=== PATIENT | male | born 1970 | race Caucasian/White ===

== ENCOUNTER 2016-03-31 22:13 | Emergency (ER) | payer MEDICAID, OTHER ==
[~2016-03-31] VITALS: Ht 210.8 cm; Wt 107.8 kg
[~2016-03-31 22:13] MED LIST: CINN500C PO; HYDR-3534 PO; METF500 PO
[2016-03-31 22:22] VITALS: BP 131/82; PULSE 92; RESP 20; TEMP 98.1
[2016-03-31] MEDS ORDERED: SODIUM CHLOR 0.9% 1000 ML INJ 1,000 ML IV ONE ×2 (23:00)
[2016-03-31] MEDS ORDERED: INSULIN HUMAN REGULAR 1,000 UNITS/10 ML VIAL SQ ONE (23:00)
--- NOTE | 2016-03-31 23:04 | PD ---
HPI Chief Complaint: Diabetic Time Seen by Provider: 22:55 Travel History International Travel<30 days: No Contact w/Intl Traveler<30days: No Traveled to known affect area: No History of Present Illness HPI This 46-year-old male is complaining of polyuria and polydipsia. He was diagnosed with diabetes about 3 months ago. He had been on Glucophage. He remembers Glucophage about a month ago and is not nothing sounds. She has made appointment with his doctor but has not seen them yet. He is not short of breath. She has been urinating a lot and is very thirsty. He has had some muscle spasms in his right arm today PFSH Past Medical History Arthritis: Yes (DJD) Asthma: No Blood Disorders: No Anxiety: Yes Depression: Yes Heart Rhythm Problems: No Cancer: No Cardiac Catheterization: No Cardiovascular Problems: Yes (HTN) High Cholesterol: Yes Chest Pain: Yes (STRESS TEST NEG) Congestive Heart Failure: No COPD: Yes Cerebrovascular Accident: No Diabetes: Yes Diminished Hearing: No Endocrine: Yes Gastrointestinal Disorders: No GERD: Yes Genitourinary: No Headaches: Yes Hepatitis: No Herniated Disk: Yes Hypertension: Yes Immune Disorder: Yes Implanted Vascular Access Dvce: No Kidney Stones: No Musculoskeletal: Yes Neurologic: Yes Psychiatric: Yes Reproductive: No Respiratory: Yes (PNEUMONIA) Immunizations Current: Yes Myocardial Infarction: No Pneumonia: Yes Sickle Cell Disease: No Sleep Apnea: No Thyroid Disease: Yes (HYPOTHYROID: NO MEDS) Ulcer: Yes (GASTRIC) PNEUMOCCOCAL Vaccine (Year): 2 Past Surgical History Abdominal Surgery: Yes (APPEndectomy) Appendectomy: Yes Arteriovenous Shunt: No Cholecystectomy: No Coronary Artery Bypass Graft: No Insulin Pump: No Joint Replacement: No Neurologic Surgery: Yes (L1 S1 DISKS REPAIR 2006) Other Surgery: Yes Social History Alcohol Use: Yes (DAILY) Tobacco Use: No (QUIT 2009) Substance Use: No Allergies-Medications (Allergen,Severity, Reaction): Coded Allergies: No Known Allergies (Verified , 02/12/16) Reported Meds & Prescriptions Reported Meds & Active Scripts Active Glucophage (Metformin HCl) 500 Mg Tab 500 Mg PO BIDPC With meals Lortab (Hydrocodone-Acetaminophen) 7.5-325 Mg Tab 1 Tab PO Q4H PRN Reported Cinnamon 500 Mg Cap 1,000 Mg PO BID Glucophage (Metformin HCl) 500 Mg Tab 500 Mg PO BIDPC With meals Review of Systems General / Constitutional: No: Fever, Chills Eyes: No: Diploplia, Blurred Vision HENT: No: Headaches Cardiovascular: No: Chest Pain or Discomfort, Palpitations Respiratory: No: Cough, Shortness of Breath Gastrointestinal: No: Vomiting Genitourinary: Positive: Frequency Musculoskeletal: No: Myalgias Skin: No Rash Physical Exam Narrative GENERAL: Well-developed male SKIN: Warm and dry. HEAD: Atraumatic. Normocephalic. EYES: Pupils equal and round. No scleral icterus. No injection or drainage. ENT: No nasal bleeding or discharge. Mucous membranes pink and moist. NECK: Trachea midline. No JVD. CARDIOVASCULAR: Regular rate and rhythm. No murmur appreciated. RESPIRATORY: No accessory muscle use. Clear to auscultation. Breath sounds equal bilaterally. GASTROINTESTINAL: Abdomen soft, non-tender, nondistended. Hepatic and splenic margins not palpable. MUSCULOSKELETAL: No obvious deformities. No clubbing. No cyanosis. No edema. NEUROLOGICAL: Awake and alert. No obvious cranial nerve deficits. Motor grossly within normal limits. Normal speech. PSYCHIATRIC: Appropriate mood and affect; insight and judgment normal. Data Data Last Documented VS Vital Signs Date Time Temp Pulse Resp B/P Pulse Ox O2 Delivery O2 Flow Rate FiO2 03/31/16 22:22 98.1 92 20 131/82 Orders Complete Blood Count With Diff (03/31/16 22:59) Basic Metabolic Panel (Bmp) (03/31/16 22:59) Beta Hydroxybutyrate (Acetone) (03/31/16 22:59) Sodium Chlor 0.9% 1000 Ml Inj (Ns 1000 M (03/31/16 23:00) Sodium Chlor 0.9% 1000 Ml Inj (Ns 1000 M (03/31/16 23:00) Insulin Human Regular Inj (Novolin R Inj (03/31/16 23:00) Labs Laboratory Tests Test 03/31/16 23:30 White Blood Count 8.6 TH/MM3 Red Blood Count 4.77 MIL/MM3 Hemoglobin 14.4 GM/DL Hematocrit 43.0 % Mean Corpuscular Volume 90.0 FL Mean Corpuscular Hemoglobin 30.1 PG Mean Corpuscular Hemoglobin 33.4 % Concent Red Cell Distribution Width 13.3 % Platelet Count 216 TH/MM3 Mean Platelet Volume 9.2 FL Neutrophils (%) (Auto) 55.4 % Lymphocytes (%) (Auto) 26.9 % Monocytes (%) (Auto) 10.2 % Eosinophils (%) (Auto) 6.2 % Basophils (%) (Auto) 1.3 % Neutrophils # (Auto) 4.8 TH/MM3 Lymphocytes # (Auto) 2.3 TH/MM3 Monocytes # (Auto) 0.9 TH/MM3 Eosinophils # (Auto) 0.5 TH/MM3 Basophils # (Auto) 0.1 TH/MM3 CBC Comment DIFF FINAL Differential Comment Sodium Level 137 MEQ/L Potassium Level 3.7 MEQ/L Chloride Level 100 MEQ/L Carbon Dioxide Level 24.6 MEQ/L Anion Gap 12 MEQ/L Blood Urea Nitrogen 13 MG/DL Creatinine 0.95 MG/DL Estimat Glomerular Filtration 85 ML/MIN Rate Random Glucose 354 MG/DL Calcium Level 8.5 MG/DL MDM Medical Decision Making Medical Screen Exam Complete: Yes Emergency Medical Condition: Yes Medical Record Reviewed: Yes Differential Diagnosis Differential includes uncontrolled diabetes, hyperglycemia, noncompliance Narrative Course Blood sugar is 350. He's been given IV fluids and some insulin. He'll be started on Glucophage 500 twice a day Diagnosis Primary Impression: Hyperglycemia Scripts Metformin (Glucophage)500 Mg [id number] Mg PO BIDPC #60 TAB Ref 0 With meals Prov:Huang Tse MD 03/31/16 Disposition: 01 DISCHARGE HOME Condition: Stable Huang Tse MD Mar 31, 2016 23:04
[2016-03-31] MEDS ORDERED: METF500 PO (23:43)
[2016-03-31 23:46] LABS: AUTOMATED NEUTROPHIL # 4.8 TH/MM3 (1.8-7.7); BASOPHIL # 0.1 TH/MM3 (0-0.2); BASOPHIL % 1.3 % (0.0-2.0); EOSINOPHIL # 0.5 TH/MM3 (0-0.4); EOSINOPHIL % 6.2 % (0.0-4.0); HEMO FLAGS DIFF FINAL; LYMPH % 26.9 % (9.0-44.0); LYMPHOCYTE # 2.3 TH/MM3 (1.0-4.8); MEAN CORPUSCULAR HEMOGLOBIN 30.1 PG (27.0-34.0); MEAN CORPUSCULAR HGB CONC 33.4 % (32.0-36.0); MONO % 10.2 % (0.0-8.0); NEUT % 55.4 % (16.0-70.0); PLATELET COUNT 216 TH/MM3 (150-450); RED BLOOD COUNT 4.77 MIL/MM3 (4.50-5.90); RED CELL DISTRIBUTION WIDTH 13.3 % (11.6-17.2); WHITE BLOOD COUNT 8.6 TH/MM3 (4.0-11.0)
[2016-03-31 23:55] LABS: POTASSIUM 3.7 MEQ/L (3.5-5.1)
[2016-03-31 23:57] LABS: BICARBONATE 24.6 MEQ/L (21.0-32.0)
[2016-04-01 00:12] LABS: BETA-HYDROXYBUTYRATE 0.3 MMOL/L (0.00-0.39)
[2016-04-01 01:40] VITALS: BP 119/52; TEMP 98.5
== END 2016-04-01 01:55 | disposition home or self-care (01) ==
LOC: PHED 22:13
DX: E11.65 Type 2 diabetes mellitus with hyperglycemia (principal); Z79.84 Long term (current) use of oral hypoglycemic drugs
CPT/HCPCS: 80048; 82010; 85025; 96360; 96361; 96372; 99284; J1815; J7030

== ENCOUNTER 2016-06-15 02:54 | Emergency (ER) | payer MEDICAID, OTHER ==
[~2016-06-15] VITALS: Ht 185.4 cm; Wt 131.0 kg
[2016-06-15 03:00] VITALS: BP 131/83; PULSE 115; RESP 20; TEMP 98.5; O2SAT 97
[2016-06-15 03:20] VITALS: BP 110/64; PULSE 104; RESP 26; O2SAT 97
[2016-06-15 03:35] VITALS: RESP 26; O2SAT 96
[2016-06-15] MEDS: RESP: ALBUTEROL 2.5 MG/IPRATROPIUM 0.5 MG NEB (SCH) INH ×3 (03:39→03:58)
--- NOTE | 2016-06-15 03:44 | PD ---
HPI Chief Complaint: Respiratory Symptoms Time Seen by Provider: 03:34 Travel History International Travel<30 days: No Contact w/Intl Traveler<30days: No Traveled to known affect area: No History of Present Illness HPI 46-year-old male presents since with complaint of shortness of breath 2 days. Symptoms have worsened this evening. Patient does not have medication for his diagnosis of COPD. Patient has not seen his primary care provider in 2 years. Patient also has diabetes but has not been well-controlled. Patient had fever of 10 2F on . Patient took acetaminophen. Patient started noticing cough productive of yellow sputum this evening with increasing shortness of breath and wheezing. Patient denies chest pain except that associated with his cough. Prior history of hypertension, diabetes, dyslipidemia, and denies tobacco use. [facility] Past Medical History Narrative Medical Hypertension dyslipidemia diabetes hypothyroidism; laminectomy appendectomy; no tobacco use no alcohol use; nursing notes reviewed Arthritis: Yes (DJD) Asthma: No Blood Disorders: No Anxiety: Yes Depression: Yes Heart Rhythm Problems: No Cancer: No Cardiac Catheterization: No Cardiovascular Problems: Yes (HTN) High Cholesterol: Yes Chest Pain: Yes (STRESS TEST NEG) Congestive Heart Failure: No COPD: Yes Cerebrovascular Accident: No Diabetes: Yes Patient Takes Glucophage: No Diminished Hearing: No Endocrine: Yes Gastrointestinal Disorders: No GERD: Yes Genitourinary: No Headaches: Yes Hepatitis: No Herniated Disk: Yes Hypertension: Yes Immune Disorder: Yes Implanted Vascular Access Dvce: No Kidney Stones: No Musculoskeletal: Yes Neurologic: Yes Psychiatric: Yes Reproductive: No Respiratory: Yes (COPD) Immunizations Current: No Myocardial Infarction: No Pneumonia: Yes Sickle Cell Disease: No Sleep Apnea: No Thyroid Disease: Yes (HYPOTHYROID: NO MEDS) Ulcer: Yes (GASTRIC) PNEUMOCCOCAL Vaccine (Year): 2 Past Surgical History Abdominal Surgery: Yes (APPEndectomy) Appendectomy: Yes Arteriovenous Shunt: No Cholecystectomy: No Coronary Artery Bypass Graft: No Insulin Pump: No Joint Replacement: No Neurologic Surgery: Yes (LAMINECTOMY ) Other Surgery: Yes Social History Alcohol Use: No Tobacco Use: No (QUIT 2009) Substance Use: No Allergies-Medications (Allergen,Severity, Reaction): Coded Allergies: No Known Allergies (Verified , 06/15/16) Reported Meds & Prescriptions Reported Meds & Active Scripts Active No Active Prescriptions or Reported Medications Review of Systems Except as stated in HPI: all other systems reviewed are Neg General / Constitutional: Positive: Fever, No: Chills HENT: No: Congestion Cardiovascular: No: Chest Pain or Discomfort Respiratory: Positive: Cough, Shortness of Breath, Wheezing Gastrointestinal: No: Vomiting, Abdominal Pain Genitourinary: No: Dysuria, Flank Pain Musculoskeletal: No: Myalgias, Arthralgias, Edema Skin: No Rash Neurologic: No: Weakness, Dizziness, Syncope Psychiatric: Positive: Anxiety Endocrine: No: Polyuria Hematologic/Lymphatic: No: Easy Bruising Physical Exam Narrative GENERAL: Well-developed well-nourished male in obvious respiratory discomfort and mild distress; no accessory muscle use. SKIN: Warm and dry. HEAD: Normocephalic. EYES: No scleral icterus. No injection or drainage. NECK: Supple, trachea midline. No JVD or lymphadenopathy. CARDIOVASCULAR: Regular rate and rhythm without murmurs, gallops, or rubs. RESPIRATORY: Breath sounds equal bilaterally diminished breath sounds with diffuse expiratory wheezes. No accessory muscle use. GASTROINTESTINAL: Abdomen soft, non-tender, nondistended. MUSCULOSKELETAL: No cyanosis, or edema. Radial and dorsalis pedis pulses 2+ to palpation bilaterally. BACK: Nontender without obvious deformity. No CVA tenderness. Data Data Last Documented VS Vital Signs Date Time Temp Pulse Resp B/P Pulse Ox O2 Delivery O2 Flow Rate FiO2 06/15/16 05:42 96 18 154/80 98 Room Air 06/15/16 03:00 98.5 Orders Iv Access Insert/Monitor (06/15/16 03:34) Ecg Monitoring (06/15/16 03:34) Oximetry (06/15/16 03:34) Oxygen Administration (06/15/16 03:34) Sodium Chloride 0.9% Flush (Ns Flush) (06/15/16 03:45) Methylprednisolone So Succ Inj (Solumedr (06/15/16 03:45) Albuterol-Ipratropium Neb (Duoneb Neb) (06/15/16 03:45) Complete Blood Count With Diff (06/15/16 03:34) Basic Metabolic Panel (Bmp) (06/15/16 03:34) Chest, Single Ap (06/15/16 03:34) Sodium Chloride 0.9% Flush (Ns Flush) (06/15/16 03:45) B-Type Natriuretic Peptide (06/15/16 03:34) Electrocardiogram (06/15/16 ) Troponin I (06/15/16 03:34) Blood Culture (06/15/16 03:34) Lactic Acid (06/15/16 03:34) Sodium Chlorid 0.9% 500 Ml Inj (Ns 500 M (06/15/16 03:45) Ceftriaxone Inj (Rocephin Inj) (06/15/16 03:45) Azithromycin Inj (Zithromax Inj) (06/15/16 03:45) Sodium Chlor 0.9% 1000 Ml Inj (Ns 1000 M (06/15/16 05:00) Insulin Human Regular Inj (Novolin R Inj (06/15/16 05:00) Labs Laboratory Tests Test 06/15/16 06/15/16 03:20 04:00 Sodium Level 136 MEQ/L Potassium Level 4.2 MEQ/L Chloride Level 102 MEQ/L Carbon Dioxide Level 20.6 MEQ/L Anion Gap 13 MEQ/L Blood Urea Nitrogen 12 MG/DL Creatinine 1.10 MG/DL Estimat Glomerular Filtration 71 ML/MIN Rate Random Glucose 350 MG/DL Calcium Level 8.2 MG/DL Troponin I LESS THAN 0.02 NG/ML B-Type Natriuretic Peptide 0 PG/ML White Blood Count 6.5 TH/MM3 Red Blood Count 4.88 MIL/MM3 Hemoglobin 14.4 GM/DL Hematocrit 42.7 % Mean Corpuscular Volume 87.5 FL Mean Corpuscular Hemoglobin 29.5 PG Mean Corpuscular Hemoglobin 33.7 % Concent Red Cell Distribution Width 12.2 % Platelet Count 181 TH/MM3 Mean Platelet Volume 8.8 FL Neutrophils (%) (Auto) 54.5 % Lymphocytes (%) (Auto) 21.8 % Monocytes (%) (Auto) 12.8 % Eosinophils (%) (Auto) 9.8 % Basophils (%) (Auto) 1.1 % Neutrophils # (Auto) 3.6 TH/MM3 Lymphocytes # (Auto) 1.4 TH/MM3 Monocytes # (Auto) 0.8 TH/MM3 Eosinophils # (Auto) 0.6 TH/MM3 Basophils # (Auto) 0.1 TH/MM3 CBC Comment DIFF FINAL Differential Comment Lactic Acid Level 1.5 mmol/L MDM Medical Decision Making Medical Screen Exam Complete: Yes Emergency Medical Condition: Yes Medical Record Reviewed: Yes (negative treadmill stress test 06/16) Interpretation(s) EKG: Sinus tachycardia rate [address] elevation or injury pattern change noted Differential Diagnosis Dyspnea, exacerbation COPD, bronchitis, pneumonia, CHF, ACS, uncontrolled diabetes, dehydration, viral syndrome Narrative Course 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 iv ACCESS OBTAINED SPECIMENS COLLECTED AND SENT FOR RESULTING PATIENT DOUGH MAKER 3 dUOnEB UPDRAFTS AND sOLU-mEDROL 125 MG iv Patient with marked improvement after DuoNeb updrafts IV fluids administered and regular insulin given to the patient for blood sugar of 350 At 6:30 AM patient reports that he feels clinically improved is desirous of being discharged to home has received IV fluid bolus and regular insulin subcutaneous IV Rocephin and azithromycin; room air O2 saturation's 98% respirations nonlabored and no accessory muscle use 1 sounds are clear to get a few rare end expiratory rhonchi chest x-ray reveals no lobar infiltrate. Patient reports out of his albuterol inhaler and metformin prescription; these medications are refilled. Patient is stable for outpatient management and follow-up with primary care provider Sepsis Criteria SIRS Criteria (2 or more): Heart rate over 90, RR > 20 or PaCO2 < 32 Diagnosis Primary Impression: COPD exacerbation Additional Impressions: Bronchitis DM (diabetes mellitus) Medication refill Referrals: Primary Care Physician call for appointment Patient Instructions: General Instructions Departure Forms: Tests/Procedures, Work Release Special Instructions: no work x 3 days Additional Instructions: Increase fluid hydration Complete course of antibiotic as prescribed Use inhaler as prescribed as needed for wheezing and shortness of breath Follow-up with primary care provider May use [id number] Robitussin or Mucinex for thinning mucous secretions Monitor temperature every 4 hours with thermometer take acetaminophen/Tylenol every 4 hours as needed for fever 100.4F or greater May use ibuprofen/Advil/Motrin every 6-8 hours as needed for breakthrough fever not responsive to acetaminophen Return to the emergency department for any concerns or change in condition No work 3 days Med/Other Pt SpecificInfo: Prescription(s) given Scripts Azithromycin (Zithromax Z-Zay)250 Mg [id number] Mg PO DIRECTED #1 DSPK Ref 0 500 MG (2 tabs) day 1, then 1 tab days 2-5. Prov:Kenzie Cates MD 06/15/16 Metformin 500 Mg [id number] Mg PO BIDPC #60 TAB Ref 0 With meals Prov:Kenzie Cates MD 06/15/16 Methylprednisolone Dosepak (Medrol Dosepak)4 Mg Dspk4 Mg PO DIRECTED #1 DSPK Ref 0 Per Pharmacist direction Prov:Kenzie Cates MD 06/15/16 Albuterol 8.5 GM Inh (Proair Hfa 8.5 GM Inh)90 Mcg/Act Aer2 Puff INH Q4-6H PRN ( SHORTNESS OF BREATH) #1 INHALER Ref 0 108 mcg/actuation Prov:Kenzie Cates MD 06/15/16 Disposition: 01 DISCHARGE HOME Condition: Stable Kenzie Cates MD Jun 15, 2016 03:44
[2016-06-15] MEDS ORDERED: SODIUM CHLORIDE 0.9% FLUSH 10 ML FLUSH IVF PRN ×2 (03:45)
[2016-06-15] MEDS ORDERED: cefTRIAXone INJ 1,000 MG in SODIUM CHLORIDE 0.9% INJ 100 ML IV ONE (03:45)
[2016-06-15] MEDS ORDERED: SODIUM CHLORID 0.9% 500 ML INJ 500 ML IV ONE (03:45)
[2016-06-15] MEDS ORDERED: AZITHROMYCIN INJ 500 MG in SODIUM CHLOR 0.9% 250 ML INJ 250 ML IV ONE (03:45)
[2016-06-15] MEDS ORDERED: methylPREDNISolone SOD SUCC 125 MG/2 ML VIAL IVP ONE (03:45)
[2016-06-15 04:10] LABS: AUTOMATED NEUTROPHIL # 3.6 TH/MM3 (1.8-7.7); BASOPHIL # 0.1 TH/MM3 (0-0.2); BASOPHIL % 1.1 % (0.0-2.0); EOSINOPHIL # 0.6 TH/MM3 (0-0.4); EOSINOPHIL % 9.8 % (0.0-4.0); HEMATOCRIT 42.7 % (39.0-51.0); HEMO FLAGS DIFF FINAL; LYMPH % 21.8 % (9.0-44.0); LYMPHOCYTE # 1.4 TH/MM3 (1.0-4.8); MEAN CELL VOLUME 87.5 FL (80.0-100.0); MEAN CORPUSCULAR HEMOGLOBIN 29.5 PG (27.0-34.0); MEAN CORPUSCULAR HGB CONC 33.7 % (32.0-36.0); MONO % 12.8 % (0.0-8.0); NEUT % 54.5 % (16.0-70.0); PLATELET COUNT 181 TH/MM3 (150-450); RED BLOOD COUNT 4.88 MIL/MM3 (4.50-5.90); RED CELL DISTRIBUTION WIDTH 12.2 % (11.6-17.2); WHITE BLOOD COUNT 6.5 TH/MM3 (4.0-11.0)
[2016-06-15 04:20] LABS: CHLORIDE 102 MEQ/L (98-107); POTASSIUM 4.2 MEQ/L (3.5-5.1); SODIUM (NA) 136 MEQ/L (136-145)
[2016-06-15 04:23] LABS: ANION GAP 13 MEQ/L (5-15); BICARBONATE 20.6 MEQ/L (21.0-32.0); BLOOD UREA NITROGEN 12 MG/DL (7-18)
[2016-06-15 04:26] LABS: GLOMERULAR FILTRATION RATE 71 ML/MIN (>89)
--- NOTE | 2016-06-15 04:28 | RADHPO ---
EXAM DATE/TIME: 06/15/2016 04:10 [place] COMPARISON: CHEST SINGLE AP, November 24, 2015, 8:22. INDICATIONS : Shortness of breath. MEDICAL HISTORY : None. SURGICAL HISTORY : None. ENCOUNTER: Initial ACUITY: 1 day PAIN SCORE: 2/10 LOCATION: Bilateral chest FINDINGS: The cardiac silhouette is enlarged in transverse diameter. The lungs are free of acute parenchymal op acity. No effusions are identified. Osseous structures are intact. CONCLUSION: Cardiomegaly. No acute cardiopulmonary disease. Jose R Hidalgo MD on June 15, 2016 at 4:26 Board Certified Radiologist. This report was verified electronically.
[2016-06-15 05:00] VITALS: BP 158/86; PULSE 105; RESP 18; O2SAT 97
[2016-06-15] MEDS ORDERED: INSULIN HUMAN REGULAR 1,000 UNITS/10 ML VIAL SQ ONE (05:00)
[2016-06-15] MEDS ORDERED: SODIUM CHLOR 0.9% 1000 ML INJ 1,000 ML IV ONE (05:00)
[2016-06-15 05:42] VITALS: BP 154/80; PULSE 96; RESP 18; O2SAT 98
[2016-06-15 06:34] VITALS: BP 137/70; PULSE 98; RESP 18; TEMP 99.5; O2SAT 97
[2016-06-15] MEDS ORDERED: MEDR4PAK PO (06:34)
[2016-06-15] MEDS ORDERED: ZITHTAB PO (06:34)
[2016-06-15] MEDS ORDERED: ALBUAER3 INH (06:34)
[2016-06-15] MEDS ORDERED: METF500T PO (06:34)
--- NOTE | 2016-06-15 14:36 | EKG ---
Date Performed: 06/15/2016 Time Performed: 03:48:48 PTAGE: 46 years EKG: Sinus tachycardia Compared to PREVIOUS TRACING , heart rate is faster. Normal ECG except for rate PREVIOUS TRACIN 06.17 DOCTOR: Donnie Mccann Interpretating Date/Time 06/15/2016 14:34:36
== END 2016-06-15 06:55 | disposition home or self-care (01) ==
LOC: PHED 02:54
DX: J44.1 Chronic obstructive pulmonary disease with (acute) exacerbation (principal); J40 Bronchitis, not specified as acute or chronic; E11.9 Type 2 diabetes mellitus without complications; R00.0 Tachycardia, unspecified; I10 Essential (primary) hypertension; E78.5 Hyperlipidemia, unspecified; E03.9 Hypothyroidism, unspecified; Z76.0 Encounter for issue of repeat prescription; Z87.39 Personal history of other diseases of the musculoskeletal system and connective tissue; Z86.59 Personal history of other mental and behavioral disorders; Z87.09 Personal history of other diseases of the respiratory system; Z87.19 Personal history of other diseases of the digestive system; Z86.69 Personal history of other diseases of the nervous system and sense organs
CPT/HCPCS: 71010; 80048; 83605; 83880; 84484; 85025; 87040; 93005; 94640; 94664; 96365; 96367; 96372; 96375; 99285; J0456; J0696; J1815; J2930; J7030; J7040; J7050

== ENCOUNTER 2016-06-15 22:46 | Emergency (ER) | payer MEDICAID, OTHER ==
[~2016-06-15] VITALS: Ht 185.4 cm; Wt 106.0 kg
[~2016-06-15 22:46] MED LIST changes: +ALBUAER3 INH; +MEDR4PAK PO; +METF500T PO; +ZITHTAB PO
[2016-06-15 22:56] VITALS: BP 157/102; PULSE 91; RESP 18; TEMP 98.2; O2SAT 97
[2016-06-15 23:29] VITALS: BP 158/91; PULSE 87; RESP 18; O2SAT 97
[2016-06-16] MEDS ORDERED: SODIUM CHLORIDE 0.9% FLUSH 10 ML FLUSH IVF PRN
[2016-06-16 00:05] VITALS: O2SAT 95
[2016-06-16 00:18] LABS: AUTOMATED NEUTROPHIL # 10.8 TH/MM3 (1.8-7.7); BASOPHIL # 0.4 TH/MM3 (0-0.2); BASOPHIL % 2.6 % (0.0-2.0); EOSINOPHIL % 0.3 % (0.0-4.0); LYMPH % 10.8 % (9.0-44.0); LYMPHOCYTE # 1.5 TH/MM3 (1.0-4.8); MEAN CELL VOLUME 87.9 FL (80.0-100.0); MEAN CORPUSCULAR HEMOGLOBIN 29.4 PG (27.0-34.0); MEAN CORPUSCULAR HGB CONC 33.4 % (32.0-36.0); MONO % 8.2 % (0.0-8.0); NEUT % 78.1 % (16.0-70.0); PLATELET COUNT 197 TH/MM3 (150-450); RED BLOOD COUNT 4.89 MIL/MM3 (4.50-5.90); RED CELL DISTRIBUTION WIDTH 12.7 % (11.6-17.2); WHITE BLOOD COUNT 13.8 TH/MM3 (4.0-11.0)
[2016-06-16 00:21] LABS: HEMO FLAGS DIFF FINAL
--- NOTE | 2016-06-16 00:23 | PD ---
HPI Chief Complaint: Diabetic Time Seen by Provider: 23:52 Travel History International Travel<30 days: No Contact w/Intl Traveler<30days: No Traveled to known affect area: No History of Present Illness HPI 46-year-old male presents to the emergency department for elevated blood sugar. Patient was seen in the emergency department yesterday for exacerbation of COPD with wheezing shortness of breath and prescribed azithromycin Medrol Dosepak and albuterol inhaler after receiving IV Solu-Medrol IV fluids and DuoNeb updrafts in the emergency department. Patient also received refill of his metformin prescription. Patient states that he did take one time dose of metformin has not yet started the oral Medrol Dosepak and has been taking his antibiotic and inhaler as needed. Patient denies other concerns or complaints. Patient states no respiratory distress and no further wheezing today. Patient identified on 2 different blood sugars that his blood sugar was greater than 300 or greater than 400 so return to the emergency department for management of his diabetes. Patient is also noted urinary frequency. PFSH Past Medical History Narrative Medical Arthritis anxiety depression hypertension dyslipidemia diabetes COPD medication noncompliance hypothyroidism appendectomy laminectomy;No tobacco use; nursing notes reviewed Arthritis: Yes (DJD) Asthma: No Blood Disorders: No Anxiety: Yes Depression: Yes Heart Rhythm Problems: No Cancer: No Cardiac Catheterization: No Cardiovascular Problems: Yes (HTN) High Cholesterol: Yes Chest Pain: Yes (STRESS TEST NEG) Congestive Heart Failure: No COPD: Yes Cerebrovascular Accident: No Diabetes: Yes Patient Takes Glucophage: Yes Diminished Hearing: No Endocrine: Yes Gastrointestinal Disorders: No GERD: Yes Genitourinary: No Headaches: Yes Hepatitis: No Herniated Disk: Yes Hypertension: Yes Immune Disorder: Yes Implanted Vascular Access Dvce: No Kidney Stones: No Musculoskeletal: Yes Neurologic: Yes Psychiatric: Yes Reproductive: No Respiratory: Yes (COPD) Immunizations Current: No Myocardial Infarction: No Pneumonia: Yes Sickle Cell Disease: No Sleep Apnea: No Thyroid Disease: Yes (HYPOTHYROID: NO MEDS) Ulcer: Yes (GASTRIC) PNEUMOCCOCAL Vaccine (Year): 2 Past Surgical History Abdominal Surgery: Yes (APPEndectomy) Appendectomy: Yes Arteriovenous Shunt: No Cholecystectomy: No Coronary Artery Bypass Graft: No Insulin Pump: No Joint Replacement: No Neurologic Surgery: Yes (LAMINECTOMY ) Other Surgery: Yes Social History Alcohol Use: No Tobacco Use: No (QUIT 2009) Substance Use: No Allergies-Medications (Allergen,Severity, Reaction): Coded Allergies: No Known Allergies (Verified , 06/15/16) Reported Meds & Prescriptions Reported Meds & Active Scripts Active Zithromax Z-Zay (Azithromycin) 250 Mg Dspk 250 Mg PO DIRECTED 500 MG (2 tabs) day 1, then 1 tab days 2-5. Metformin (Metformin HCl) 500 Mg Tab 500 Mg PO BIDPC With meals Medrol Dosepak (Methylprednisolone) 4 Mg Dspk 4 Mg PO DIRECTED Per Pharmacist direction Proair Hfa 8.5 GM Inh (Albuterol Sulfate) 90 Mcg/Act Aer 2 Puff INH Q4-6H PRN 108 mcg/actuation Review of Systems Except as stated in HPI: all other systems reviewed are Neg General / Constitutional: No: Fever, Chills HENT: No: Congestion Cardiovascular: No: Chest Pain or Discomfort Respiratory: No: Shortness of Breath Gastrointestinal: No: Nausea, Vomiting, Diarrhea, Abdominal Pain Genitourinary: No: Frequency, Dysuria Musculoskeletal: No: Myalgias Skin: No Rash Neurologic: No: Weakness, Dizziness, Syncope Psychiatric: No: Anxiety Endocrine: Positive: Polyuria, No: Polydipsia Hematologic/Lymphatic: No: Easy Bruising Physical Exam Narrative GENERAL: Well-developed well-nourished male in acute distress no respiratory distress. SKIN: Warm and dry. HEAD: Normocephalic. EYES: No scleral icterus. No injection or drainage. NECK: Supple, trachea midline. No JVD or lymphadenopathy. CARDIOVASCULAR: Regular rate and rhythm without murmurs, gallops, or rubs. RESPIRATORY: Breath sounds equal bilaterally. No accessory muscle use. GASTROINTESTINAL: Abdomen soft, non-tender, nondistended. MUSCULOSKELETAL: No cyanosis, or edema. BACK: Nontender without obvious deformity. No CVA tenderness. Data Data Last Documented VS Vital Signs Date Time Temp Pulse Resp B/P Pulse Ox O2 Delivery O2 Flow Rate FiO2 06/16/16 00:05 95 06/15/16 23:33 87 18 Room Air 06/15/16 23:29 158/91 06/15/16 22:56 98.2 Orders Complete Blood Count With Diff (06/15/16 23:52) Comprehensive Metabolic Panel (06/15/16 23:52) Beta Hydroxybutyrate (Acetone) (06/15/16 23:52) Urinalysis - C+S If Indicated (06/15/16 23:52) Ecg Monitoring (06/15/16 23:52) Iv Access Insert/Monitor (06/15/16 23:52) Oximetry (06/15/16 23:52) NPO (06/15/16 23:52) Sodium Chloride 0.9% Flush (Ns Flush) (06/16/16 00:00) Sodium Chlor 0.9% 1000 Ml Inj (Ns 1000 M (06/16/16 00:30) Insulin Human Regular Inj (Novolin R Inj (06/16/16 00:30) Ketorolac Inj (Toradol Inj) (06/16/16 00:30) Labs Laboratory Tests Test 06/16/16 06/16/16 00:05 00:20 White Blood Count 13.8 TH/MM3 Red Blood Count 4.89 MIL/MM3 Hemoglobin 14.4 GM/DL Hematocrit 43.0 % Mean Corpuscular Volume 87.9 FL Mean Corpuscular Hemoglobin 29.4 PG Mean Corpuscular Hemoglobin 33.4 % Concent Red Cell Distribution Width 12.7 % Platelet Count 197 TH/MM3 Mean Platelet Volume 8.9 FL Neutrophils (%) (Auto) 78.1 % Lymphocytes (%) (Auto) 10.8 % Monocytes (%) (Auto) 8.2 % Eosinophils (%) (Auto) 0.3 % Basophils (%) (Auto) 2.6 % Neutrophils # (Auto) 10.8 TH/MM3 Lymphocytes # (Auto) 1.5 TH/MM3 Monocytes # (Auto) 1.1 TH/MM3 Eosinophils # (Auto) 0.0 TH/MM3 Basophils # (Auto) 0.4 TH/MM3 CBC Comment DIFF FINAL Differential Comment Sodium Level 134 MEQ/L Potassium Level 4.3 MEQ/L Chloride Level 97 MEQ/L Carbon Dioxide Level 21.3 MEQ/L Anion Gap 16 MEQ/L Blood Urea Nitrogen 17 MG/DL Creatinine 1.10 MG/DL Estimat Glomerular Filtration 71 ML/MIN Rate Random Glucose 458 MG/DL Calcium Level 9.6 MG/DL Total Bilirubin 0.2 MG/DL Aspartate Amino Transf 40 U/L (AST/SGOT) Alanine Aminotransferase 93 U/L (ALT/SGPT) Alkaline Phosphatase 58 U/L Total Protein 8.3 GM/DL Albumin 3.7 GM/DL B-Hydroxybutyrate 0.36 MMOL/L Urine Collection Type VOIDED Urine Color STRAW Urine Turbidity CLEAR Urine pH 6.0 Urine Specific [place] 1.035 Urine Protein NEG mg/dL Urine Glucose (UA) 1000 OR GREATER mg/dL Urine Ketones NEG mg/dL Urine Occult Blood NEG Urine Nitrite NEG Urine Bilirubin NEG Urine Leukocyte Esterase NEG Urine WBC 0-2 /hpf Urine Squamous Epithelial 0-2 /hpf Cells Urine Oval Fat Bodies Microscopic Urinalysis Comment CULT NOT INDICATED MDM Medical Decision Making Medical Screen Exam Complete: Yes Emergency Medical Condition: Yes Medical Record Reviewed: Yes Interpretation(s) CBC & BMP Diagram 06/16/16 00:05 BHB: not elevated @ 0.36 UA: glucose no ketones o/w wnl Differential Diagnosis Uncontrolled diabetes, steroid-induced hyperglycemia, electrolyte disturbance, dehydration, DKA, HHS Narrative Course IV access obtained specimens collected and sent for resulting IV fluids administer along with regular insulin Patient with good response to IV fluids and insulin administration Patient stable for outpatient management; patient encouraged to take metformin as prescribed; patient encouraged to hold off on Medrol Dosepak prescribed from the day before as currently no respiratory distress and has access to his inhaler as needed and is informed that steroid therapy will keep his blood sugars elevated. Patient did receive Solu-Medrol during his visit for exacerbation of COPD. Patient is having no respiratory concerns or complaints this time and lung sounds remained clear to auscultation. Patient is able to follow-up as an outpatient as needed through case management and with primary provider. Patient is encouraged to return to the emergency department for fever chills nausea vomiting uncontrolled blood sugars or any concerns. Diagnosis Primary Impression: Hyperglycemia Additional Impression: DM (diabetes mellitus) Referrals: [facility] call for appointment Primary Care Physician call for appointment Patient Instructions: General Instructions Med/Other Pt SpecificInfo: Med Stopped (defer starting medrol dose-zay taper ) Disposition: 01 DISCHARGE HOME Condition: Stable Kenzie Cates MD Jun 16, 2016 00:23
[2016-06-16 00:27] LABS: CHLORIDE 97 MEQ/L (98-107); POTASSIUM 4.3 MEQ/L (3.5-5.1); SODIUM (NA) 134 MEQ/L (136-145)
[2016-06-16] MEDS ORDERED: SODIUM CHLOR 0.9% 1000 ML INJ 1,000 ML IV ONE (00:30)
[2016-06-16] MEDS ORDERED: KETOROLAC TROMETHAMINE 30 MG/ML (IVP) VIAL IV PUSH ONE (00:30)
[2016-06-16] MEDS ORDERED: INSULIN HUMAN REGULAR 1,000 UNITS/10 ML VIAL IV PUSH ONE (00:30)
[2016-06-16 00:31] LABS: BLOOD, URINE NEG (NEG); KETONE, URINE NEG (NEG); NITRITE,URINE NEG (NEG)
[2016-06-16 00:35] LABS: ALT (GPT) 93 U/L (12-78); ANION GAP 16 MEQ/L (5-15); AST (GOT) 40 U/L (15-37); BICARBONATE 21.3 MEQ/L (21.0-32.0); BLOOD UREA NITROGEN 17 MG/DL (7-18); GLOMERULAR FILTRATION RATE 71 ML/MIN (>89)
[2016-06-16 00:37] LABS: GLUCOSE,URINE 1000 OR GREATER mg/dL (NEG)
[2016-06-16 01:05] LABS: METHOD OF COLLECTION VOIDED; URINE COLOR STRAW (YELLW/STRAW)
[2016-06-16 01:06] LABS: SQUAMOUS EPITHELIAL CELL URINE 0-2 /hpf (0-5); WBC, URINE 0-2 /hpf (0-5)
[2016-06-16 01:07] LABS: COMMENT (UR) CULT NOT INDICATED; CULTURE IF INDICATED CULT NOT INDICATED
[2016-06-16 01:25] LABS: ALKALINE PHOSPHATASE 58 U/L (45-117); BETA-HYDROXYBUTYRATE 0.36 MMOL/L (0.00-0.39); TOTAL BILIRUBIN ADULT 0.2 MG/DL (0.2-1.0)
[2016-06-16 01:55] VITALS: RESP 18
[2016-06-16 02:24] VITALS: BP 133/80
== END 2016-06-16 04:45 | disposition home or self-care (01) ==
LOC: PHED 22:46
DX: E11.65 Type 2 diabetes mellitus with hyperglycemia (principal); I10 Essential (primary) hypertension; E78.5 Hyperlipidemia, unspecified; E03.9 Hypothyroidism, unspecified; Z79.84 Long term (current) use of oral hypoglycemic drugs; Z87.39 Personal history of other diseases of the musculoskeletal system and connective tissue; Z86.59 Personal history of other mental and behavioral disorders; Z87.09 Personal history of other diseases of the respiratory system; Z86.79 Personal history of other diseases of the circulatory system; Z86.69 Personal history of other diseases of the nervous system and sense organs
CPT/HCPCS: 80053; 81001; 82010; 85025; 96361; 96374; 96375; 99284; J1815; J1885; J7030

== ENCOUNTER 2017-03-16 23:16 | Emergency (ER) | payer MEDICAID ==
[~2017-03-16] VITALS: Ht 185.4 cm; Wt 109.9 kg
[~2017-03-16 23:16] MED LIST changes: -CINN500C PO; -HYDR-3534 PO; -METF500 PO
[2017-03-16 23:23] VITALS: BP 158/84; PULSE 80; RESP 20; TEMP 98; O2SAT 100
[2017-03-17 01:55] VITALS: BP 157/84; PULSE 83; RESP 18; O2SAT 95
--- NOTE | 2017-03-17 02:23 | PD ---
HPI Chief Complaint: Musculoskeletal Complaint Time Seen by Provider: 02:18 Travel History International Travel<30 days: No Contact w/Intl Traveler<30days: No Traveled to known affect area: No History of Present Illness HPI The patient is a 47-year-old male that complains of right elbow pain for 2 days. 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 He denies any trauma. PFSH Past Medical History Arthritis: Yes (DJD) Asthma: No Blood Disorders: No Anxiety: Yes Depression: Yes Heart Rhythm Problems: No Cancer: No Cardiac Catheterization: No Cardiovascular Problems: Yes (HTN) High Cholesterol: Yes Chest Pain: Yes (STRESS TEST NEG) Congestive Heart Failure: No COPD: Yes Cerebrovascular Accident: No Diabetes: Yes Patient Takes Glucophage: No Diminished Hearing: No Endocrine: Yes Gastrointestinal Disorders: No GERD: Yes Genitourinary: No Headaches: Yes Hepatitis: No Herniated Disk: Yes Hypertension: Yes Immune Disorder: Yes Implanted Vascular Access Dvce: No Kidney Stones: No Medical other: Yes (DDD) Musculoskeletal: Yes Neurologic: Yes Psychiatric: Yes Reproductive: No Respiratory: Yes (COPD) Immunizations Current: No Myocardial Infarction: No Pneumonia: Yes Sickle Cell Disease: No Sleep Apnea: No Thyroid Disease: Yes (HYPOTHYROID: NO MEDS) Ulcer: Yes (GASTRIC) Tetanus Vaccination: Unknown PNEUMOCCOCAL Vaccine (Year): 2 Past Surgical History Abdominal Surgery: Yes (APPEndectomy) Appendectomy: Yes Arteriovenous Shunt: No Cholecystectomy: No Coronary Artery Bypass Graft: No Insulin Pump: No Joint Replacement: No Neurologic Surgery: Yes (LAMINECTOMY ) Other Surgery: Yes Social History Alcohol Use: No Tobacco Use: No Substance Use: No Allergies-Medications (Allergen,Severity, Reaction): Coded Allergies: No Known Allergies (Verified Adverse Reaction, Unknown, 03/17/17) Reported Meds & Prescriptions Reported Meds & Active Scripts Active Review of Systems Except as stated in HPI: all other systems reviewed are Neg Physical Exam Narrative GENERAL: Well-nourished, alert and oriented, slightly obese patient in moderate apparent distress with his right elbow pain. SKIN: Focused skin assessment warm/dry. HEAD: Normocephalic. EYES: No scleral icterus. No injection or drainage. NECK: Supple, trachea midline. No JVD or lymphadenopathy. CARDIOVASCULAR: Regular rate and rhythm without murmurs, gallops, or rubs. RESPIRATORY: Breath sounds equal bilaterally. No accessory muscle use. GASTROINTESTINAL: Abdomen soft, non-tender, nondistended. MUSCULOSKELETAL: No cyanosis, or edema. BACK: Nontender without obvious deformity. No CVA tenderness. Data Data Last Documented VS Vital Signs Date Time Temp Pulse Resp B/P (MAP) Pulse Ox O2 Delivery O2 Flow Rate FiO2 03/17/17 03:00 78 18 147/78 (101) 95 Room Air 03/16/17 23:23 98.0 Orders Orders Elbow, Complete (4 Vws) (03/17/17 02:18) [facility] Medical Decision Making Medical Screen Exam Complete: Yes Emergency Medical Condition: Yes Medical Record Reviewed: Yes Interpretation(s) The right elbow shows chronic hypertrophic change and a possible 3 mm loose body at the olecranon fossa. As noted. Differential Diagnosis Fracture elbow-unlikely, dislocation elbow-unlikely, arthritis elbow Narrative Course The patient likely has arthritis and joint swelling in the elbow and there is a possible loose body at the olecranon fossa. Plan: The patient will be given prednisone 50 mg for 5 days and follow-up with an orthopedic physician. He will be put in a sling and no work until cleared by the orthopedic physician. He will be given Percocet 7.5 for the pain. He is told not to drink alcohol or drive on the Percocet 5. He will be given a work excuse stating no work until cleared by his orthopedic physician. He also gets a sling and swath. Diagnosis Primary Impression: Arthritis of elbow, right, degenerative Additional Impression: Right elbow pain Additional Instructions: As we discussed, follow-up with orthopedics. The prednisone is taken one tablet daily for 5 days. Do not drink alcohol or drive on the Percocet 7.5. Do not work until cleared by orthopedics, you will be given a sling and swath. Med/Other Pt SpecificInfo: Prescription(s) given Scripts Oxycodone-Acetaminophen (Percocet) 7.5-325 mg Tab 1 TAB PO Q6H Y for PAIN, #30 TAB 0 Refills Prov: Ross Moya MD 03/17/17 Prednisone (Prednisone) 50 Mg Tab 50 MG PO DAILY for 5 Days, #5 TAB 0 Refills Prov: Ross Moya MD 03/17/17 Disposition: 01 DISCHARGE HOME Condition: Stable Ross Moya MD Mar 17, 2017 02:23
--- NOTE | 2017-03-17 02:56 | RADRPT ---
EXAM DATE/TIME: 03/17/2017 02:21 [facility] COMPARISON: No previous studies available for comparison. 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 Unable to move arm. No known trauma. MEDICAL HISTORY : None. SURGICAL HISTORY : None. ENCOUNTER: Initial ACUITY: 2 days PAIN SCORE: 10/10 LOCATION: Right elbow. FINDINGS: No fracture is seen. The elbow joint is aligned. There is a mild effusion. There is chronic hypertrop hic change seen at the radial head, adjacent to the coronoid process of the anterior proximal ulna, a nd adjacent to the medial epicondyles. There is also a possible 3 mm loose body adjacent to the olecr anon and the olecranon fossa. CONCLUSION: Chronic hypertrophic change and a possible 3 mm loose body at the olecranon fossa.. Ludwig Hamilton MD on March 17, 2017 at 2:50 Board Certified Radiologist. This report was verified electronically.
[2017-03-17 03:00] VITALS: BP 147/78; PULSE 78; RESP 18; O2SAT 95
[2017-03-17] MEDS ORDERED: PERC7.5T13 PO (03:37)
[2017-03-17] MEDS ORDERED: PRED50 PO ×2 (03:37→03:54)
[2017-03-17] MEDS ORDERED: predniSONE 20 MG TAB PO ONE (03:45)
[2017-03-17] MEDS ORDERED: METF500T PO (03:53)
[2017-03-17 04:01] VITALS: BP 150/86
== END 2017-03-17 04:08 | disposition home or self-care (01) ==
LOC: PHED 23:16
DX: M19.021 Primary osteoarthritis, right elbow (principal); M19.90 Unspecified osteoarthritis, unspecified site; D41.9 Neoplasm of uncertain behavior of unspecified urinary organ; I10 Essential (primary) hypertension; E78.00 Pure hypercholesterolemia, unspecified; J44.9 Chronic obstructive pulmonary disease, unspecified; E11.9 Type 2 diabetes mellitus without complications; K21.9 Gastro-esophageal reflux disease without esophagitis; E66.9 Obesity, unspecified; X50.3XXA Overexertion from repetitive movements, initial encounter; Y99.0 Civilian activity done for income or pay; Z79.4 Long term (current) use of insulin
CPT/HCPCS: 29240; 73080; 99284; J7512

== ENCOUNTER 2017-05-13 00:58 | Emergency (ER) | payer MEDICAID ==
[~2017-05-13] VITALS: Ht 185.4 cm; Wt 101.9 kg
[~2017-05-13 00:58] MED LIST changes: -ALBUAER3 INH; -MEDR4PAK PO; +PERC7.5T13 PO; +PRED50 PO; -ZITHTAB PO
[2017-05-13 01:01] VITALS: BP 124/77; PULSE 100; RESP 14; TEMP 98.5; O2SAT 97
--- NOTE | 2017-05-13 02:11 | PD ---
HPI Chief Complaint: Cold / Flu Symptoms Time Seen by Provider: 02:07 Travel History International Travel<30 days: No Contact w/Intl Traveler<30days: No Traveled to known affect area: No History of Present Illness HPI The patient is a 47-year-old male that complains of a sore throat, gradual onset headache behind both eyes, chills and cough for 1 day. He thinks he has had a fever but never took his temperature. He has a history of metformin controlled diabetes and does not smoke. He states the sore throat is an 8/10 and burning pain. PFSH Past Medical History Arthritis: Yes (DJD) Asthma: No Blood Disorders: No Anxiety: Yes Depression: Yes Heart Rhythm Problems: No Cancer: No Cardiac Catheterization: No Cardiovascular Problems: Yes (HTN) High Cholesterol: Yes Chest Pain: Yes (STRESS TEST NEG) Congestive Heart Failure: No COPD: Yes Cerebrovascular Accident: No Diabetes: Yes Patient Takes Glucophage: Yes (RAN OUT OF RX ONE MONTH AGO) Diminished Hearing: No Endocrine: Yes Gastrointestinal Disorders: No GERD: Yes Genitourinary: No Headaches: Yes Hepatitis: No Herniated Disk: Yes Hypertension: Yes Immune Disorder: Yes Implanted Vascular Access Dvce: No Kidney Stones: No Musculoskeletal: Yes Neurologic: Yes Psychiatric: Yes Reproductive: No Respiratory: Yes (COPD) Immunizations Current: No Myocardial Infarction: No Pneumonia: Yes Sickle Cell Disease: No Sleep Apnea: No Thyroid Disease: Yes (HYPOTHYROID: NO MEDS) Ulcer: Yes (GASTRIC) Influenza Vaccination: No PNEUMOCCOCAL Vaccine (Year): 2 Past Surgical History Abdominal Surgery: Yes (APPEndectomy) Appendectomy: Yes Arteriovenous Shunt: No Cholecystectomy: No Coronary Artery Bypass Graft: No Insulin Pump: No Joint Replacement: No Neurologic Surgery: Yes (LAMINECTOMY ) Other Surgery: Yes Social History Alcohol Use: No Tobacco Use: No (QUIT 2007) Substance Use: No Allergies-Medications (Allergen,Severity, Reaction): Coded Allergies: No Known Allergies (Verified Adverse Reaction, Unknown, 05/13/17) Reported Meds & Prescriptions Reported Meds & Active Scripts Active Metformin (Metformin HCl) 500 Mg Tab 500 Mg PO DAILY With a meal Review of Systems Except as stated in HPI: all other systems reviewed are Neg Physical Exam Narrative GENERAL: The patient is alert, oriented 3 in moderate apparent distress with his sore throat. His vital signs show heart rate of 100 but otherwise normal. SKIN: Focused skin assessment warm/dry. No skin rash is present. HEAD: Atraumatic. Normocephalic. EYES: Pupils equal and round. No scleral icterus. No injection or drainage. ENT: No nasal bleeding or discharge. Mucous membranes pink and moist. The throat is red without abscess or exudate. The tympanic membranes are clear. NECK: Trachea midline. No JVD. There is no meningismus present. CARDIOVASCULAR: Regular rate and rhythm. No murmur appreciated. RESPIRATORY: No accessory muscle use. Clear to auscultation. Breath sounds equal bilaterally. GASTROINTESTINAL: Abdomen soft, non-tender, nondistended. Hepatic and splenic margins not palpable. MUSCULOSKELETAL: No obvious deformities. No clubbing. No cyanosis. No edema. NEUROLOGICAL: Awake and alert. No obvious cranial nerve deficits. Motor grossly within normal limits. Normal speech. PSYCHIATRIC: Appropriate mood and affect; insight and judgment normal. Data Data Last Documented VS Vital Signs Date Time Temp Pulse Resp B/P (MAP) Pulse Ox O2 Delivery O2 Flow Rate FiO2 05/13/17 01:15 16 97 Room Air 05/13/17 01:01 98.5 100 124/77 (93) Orders Orders Group A Rapid Strep Screen (05/13/17 01:09) Influenzae A/B Antigen (05/13/17 01:09) Strep Culture (Group A) (05/13/17 01:26) Prednisone (Deltasone) (05/13/17 02:15) MDM Medical Decision Making Medical Screen Exam Complete: Yes Emergency Medical Condition: Yes Medical Record Reviewed: Yes Differential Diagnosis Strep pharyngitis, viral pharyngitis, flu syndrome, nonspecific viral syndrome, pneumonia, bronchitis Narrative Course The lungs are clear and the patient is in no respiratory distress. He appears to have a nonspecific viral syndrome since he tested negative for both flu and strep. He will be given prednisone 20 mg twice daily for 7 days. Diagnosis Primary Impression: Viral URI Additional Instructions: Do not drink alcohol or drive on the codeine containing cough syrup. We will give the off work for 4 days. The prednisone is taken 1 tablet twice daily for 7 days. The prednisone will help the throat pain. Follow-up with your primary care physician next week. Med/Other Pt SpecificInfo: Prescription(s) given Scripts Guaifenesin-Codeine Liq (Guaifenesin AC Liq) 100-10 Mg/5 Ml Syrp 10 ML PO Q4H Y for COUGH, #1 BOTTLE 0 Refills Prov: Ross Moya MD 05/13/17 Prednisone (Prednisone) 20 Mg Tab 20 MG PO BID for 7 Days, #14 TAB 0 Refills Prov: Ross Moya MD 05/13/17 Disposition: 01 DISCHARGE HOME Condition: Stable Ross Moya MD May 13, 2017 02:11
[2017-05-13] MEDS ORDERED: GUAISYP4 PO (02:13)
[2017-05-13] MEDS ORDERED: PRED20 PO (02:13)
[2017-05-13] MEDS ORDERED: predniSONE 20 MG TAB PO ONE (02:15)
[2017-05-13 02:34] VITALS: BP 120/88
== END 2017-05-13 02:41 | disposition home or self-care (01) ==
LOC: PHED 00:58
DX: J06.9 Acute upper respiratory infection, unspecified (principal); R51 Headache; R05 Cough; E11.9 Type 2 diabetes mellitus without complications; J44.9 Chronic obstructive pulmonary disease, unspecified; F41.8 Other specified anxiety disorders; Z79.84 Long term (current) use of oral hypoglycemic drugs
CPT/HCPCS: 87081; 87804; 87880; 99283; J7512

== ENCOUNTER 2017-05-25 06:16 | Emergency (ER) | payer MEDICAID ==
[~2017-05-25] VITALS: Ht 185.4 cm; Wt 101.0 kg
[~2017-05-25 06:16] MED LIST changes: +GUAISYP4 PO; -PERC7.5T13 PO; +PRED20 PO; -PRED50 PO
[2017-05-25 06:23] VITALS: BP 137/70; PULSE 109; RESP 18; TEMP 98.2; O2SAT 96
[2017-05-25] MEDS ORDERED: LIDOCAINE HCL 1% 50 ML VIAL XX ONE (08:30)
[2017-05-25] MEDS ORDERED: DEXAMETHASONE SOD PHOS 4 MG/ML VIAL IM ONE (08:30)
[2017-05-25] MEDS ORDERED: BENZATHINE IM ONE (08:30)
[2017-05-25] MEDS ORDERED: PROCAINE IM ONE (08:30)
[2017-05-25] MEDS ORDERED: OFLOXACIN 0.3% OPTH SOLN 5 ML BTL EACH EYE ONE (08:30)
--- NOTE | 2017-05-25 08:56 | PD ---
HPI Chief Complaint: ENT Complaint Time Seen by Provider: 08:16 Travel History International Travel<30 days: No Contact w/Intl Traveler<30days: No Traveled to known affect area: No History of Present Illness HPI 47-year-old male complains of sore throat which becomes severe w swallowing. Duration about 2-3 days. Patient also reports mucus accumulation about the eyes in the mornings for about 4 days. Pt denies fever. No dyspnea or cough. PFSH Past Medical History Arthritis: Yes (DJD) Asthma: No Blood Disorders: No Anxiety: Yes Depression: Yes Heart Rhythm Problems: No Cancer: No Cardiac Catheterization: No Cardiovascular Problems: Yes (HTN) High Cholesterol: Yes Chest Pain: Yes (STRESS TEST NEG) Congestive Heart Failure: No COPD: Yes Cerebrovascular Accident: No Diabetes: Yes Diminished Hearing: No Endocrine: Yes Gastrointestinal Disorders: No GERD: Yes Genitourinary: No Headaches: Yes Hepatitis: No Herniated Disk: Yes Hypertension: Yes Immune Disorder: Yes Implanted Vascular Access Dvce: No Kidney Stones: No Musculoskeletal: Yes Neurologic: Yes Psychiatric: Yes Reproductive: No Respiratory: Yes (COPD) Immunizations Current: No Myocardial Infarction: No Pneumonia: Yes Sickle Cell Disease: No Sleep Apnea: No Thyroid Disease: Yes (HYPOTHYROID: NO MEDS) Ulcer: Yes (GASTRIC) PNEUMOCCOCAL Vaccine (Year): 2 Past Surgical History Abdominal Surgery: Yes (APPEndectomy) Appendectomy: Yes Arteriovenous Shunt: No Cholecystectomy: No Coronary Artery Bypass Graft: No Insulin Pump: No Joint Replacement: No Neurologic Surgery: Yes (LAMINECTOMY ) Other Surgery: Yes Social History Alcohol Use: No Tobacco Use: No (QUIT 2007) Substance Use: No Allergies-Medications (Allergen,Severity, Reaction): Coded Allergies: No Known Allergies (Verified Adverse Reaction, Unknown, 05/13/17) Reported Meds & Prescriptions Reported Meds & Active Scripts Active Ocuflox Opth Drops (Ofloxacin Opth Drops) 0.3 % Drops 1 Drop EACH EYE QID 7 Days Review of Systems General / Constitutional: No: Fever Eyes: No: Diploplia HENT: No: Headaches Cardiovascular: No: Chest Pain or Discomfort Physical Exam Narrative GENERAL: 47 yo M, NAD, WNWD Vital Signs Date Time Temp Pulse Resp B/P (MAP) Pulse Ox O2 Delivery O2 Flow Rate FiO2 05/25/17 09:25 3/25/18 06:23 98.2 109 18 137/70 (92) 96 SKIN: Warm and dry. HEAD: Atraumatic. Normocephalic. EYES: Pupils equal and round. No scleral icterus. No injection or drainage. Minimal purulent debris about the eyelids bilaterally. ENT: Minimal bilateral tonsillar swelling without depression of the soft palate. NECK: Trachea midline. No JVD. Minimal tender anterior neck adenopathy. CARDIOVASCULAR: Tachycardia. Regular rhythm. RESPIRATORY: No accessory muscle use. Clear to auscultation. Breath sounds equal bilaterally. Data Data Last Documented VS Vital Signs Date Time Temp Pulse Resp B/P (MAP) Pulse Ox O2 Delivery O2 Flow Rate FiO2 05/25/17 09:25 05/25/17 06:23 98.2 109 18 96 Orders Orders Penicillin G Proc-Karthik 9-3 Inj (Bicillin (05/25/17 08:30) Lidocaine 1% Inj (50 Ml) (Xylocaine 1% I (05/25/17 08:30) Dexamethasone Inj (Decadron Inj) (05/25/17 08:30) Ofloxacin 0.3% Opth Soln (Ocuflox 0.3% O (05/25/17 08:30) Ed Discharge Order (05/25/17 08:56) MDM Medical Decision Making Medical Screen Exam Complete: Yes Emergency Medical Condition: Yes Medical Record Reviewed: Yes Differential Diagnosis Streptococcal pharyngitis, viral Streptococcus, conjunctivitis, peritonsillar abscess Narrative Course Patient has conjunctivitis and pharyngitis. The pharyngitis is concerning for streptococcal etiology and the patient will receive penicillin here. Cipro gtt script Diagnosis Primary Impression: Pharyngitis Qualified Codes: J02.9 - Acute pharyngitis, unspecified Additional Impression: Conjunctivitis Qualified Codes: H10.33 - Unspecified acute conjunctivitis, bilateral Referrals: Primary Care Physician call for appointment Med/Other Pt SpecificInfo: No Change to Meds Scripts Ofloxacin Opth Drops (Ocuflox Opth Drops) 0.3 % Drops 1 DROP EACH EYE QID for Infection for 7 Days, #1 BOTTLE 0 Refills Prov: Wilian Escudero MD 05/25/17 Disposition: 01 DISCHARGE HOME Condition: Stable Wilian Escudero MD May 25, 2017 08:56
[2017-05-25] MEDS ORDERED: OCUF0.3D EACH EYE (09:19)
== END 2017-05-25 10:09 | disposition home or self-care (01) ==
LOC: PHED 06:16
DX: J02.9 Acute pharyngitis, unspecified (principal); H10.9 Unspecified conjunctivitis; R00.0 Tachycardia, unspecified; I10 Essential (primary) hypertension; J44.9 Chronic obstructive pulmonary disease, unspecified; E11.9 Type 2 diabetes mellitus without complications; K21.9 Gastro-esophageal reflux disease without esophagitis; F41.9 Anxiety disorder, unspecified; E78.00 Pure hypercholesterolemia, unspecified
CPT/HCPCS: 96372; 99284; J0558; J1100

== ENCOUNTER 2017-05-27 07:36 | Emergency (ER) | payer MEDICAID ==
[~2017-05-27] VITALS: Ht 182.9 cm; Wt 99.5 kg
[~2017-05-27 07:36] MED LIST changes: -GUAISYP4 PO; -METF500T PO; +OCUF0.3D EACH EYE; -PRED20 PO
[2017-05-27 07:48] VITALS: BP 166/93; PULSE 93; RESP 16; TEMP 98.4; O2SAT 99
[2017-05-27] MEDS ORDERED: predniSONE 50 MG TAB PO ONE (08:15)
[2017-05-27] MEDS ORDERED: KETOROLAC TROMETHAMINE 60 MG/2 ML (IM) VIAL IM ONE (08:15)
[2017-05-27] MEDS ORDERED: PRED50 PO (08:21)
--- NOTE | 2017-05-27 08:21 | PD ---
HPI Chief Complaint: ENT Complaint Time Seen by Provider: 07:54 Travel History International Travel<30 days: No Contact w/Intl Traveler<30days: No Traveled to known affect area: No History of Present Illness HPI 47-year-old male presents with continued sore throat. He states that he felt better for one day but then his sore throat came back. He denies any fever, vomiting or other new complaints. He states he is taking Motrin without relief. Severity is severe per patient. Quality is sharp. He states the pain is worse with swallowing. He denies other specific modifying factors. He denies any changes in his symptoms since his recent ER visit. PFSH Past Medical History Arthritis: Yes (DJD) Asthma: No Blood Disorders: No Anxiety: Yes Depression: Yes Heart Rhythm Problems: No Cancer: No Cardiac Catheterization: No Cardiovascular Problems: Yes (htn not on meds) High Cholesterol: Yes Chest Pain: Yes (Stress test (-)) Congestive Heart Failure: No COPD: Yes Cerebrovascular Accident: No Diabetes: Yes Patient Takes Glucophage: No Diminished Hearing: No Endocrine: Yes Gastrointestinal Disorders: No GERD: Yes Genitourinary: No Headaches: Yes Hepatitis: No Herniated Disk: Yes Hypertension: Yes Immune Disorder: Yes Implanted Vascular Access Dvce: No Kidney Stones: No Musculoskeletal: Yes Neurologic: Yes Psychiatric: Yes Reproductive: No Respiratory: Yes (COPD) Immunizations Current: No Myocardial Infarction: No Pneumonia: Yes Sickle Cell Disease: No Sleep Apnea: No Thyroid Disease: Yes (Hypo-) Ulcer: Yes (Gastric ) Tetanus Vaccination: > 5 Years Influenza Vaccination: No PNEUMOCCOCAL Vaccine (Year): 2 Past Surgical History Abdominal Surgery: Yes (APPEndectomy) Appendectomy: Yes Arteriovenous Shunt: No Cholecystectomy: No Coronary Artery Bypass Graft: No Insulin Pump: No Joint Replacement: No Neurologic Surgery: Yes (Laminectomy) Other Surgery: Yes Social History Alcohol Use: No Tobacco Use: No Substance Use: No Allergies-Medications (Allergen,Severity, Reaction): Coded Allergies: No Known Allergies (Verified Adverse Reaction, Unknown, 05/27/17) Reported Meds & Prescriptions Reported Meds & Active Scripts Active Prednisone 50 Mg Tab 50 Mg PO DAILY 4 Days first dose 05/28 Review of Systems Except as stated in HPI: all other systems reviewed are Neg Physical Exam Narrative General: No apparent distress, well appearing ENT: Posterior oropharyngx with mild erythema without exudate, uvula midline, no peritonsillar abscess noted, external auditory canals are normal. Bilateral TM clear, nontender over the mastoids, mild cervical lymphadenopathy noted bilaterally Neck: Neck is supple, no meningeal signs, trachea is midline Cardiovascular: Regular rate and rhythm Lungs: No increased respiratory effort noted, CTA bilaterally Abdomen: Soft, NT, ND Extremities: No edema Neuro: Awake, motor and sensation grossly intact, normal speech Data Data Last Documented VS Vital Signs Date Time Temp Pulse Resp B/P (MAP) Pulse Ox O2 Delivery O2 Flow Rate FiO2 05/27/17 07:55 14 05/27/17 07:48 98.4 93 166/93 (117) 99 Orders Orders Ketorolac Inj (Toradol Inj) (05/27/17 08:15) Prednisone (Deltasone) (05/27/17 08:15) Ed Discharge Order (05/27/17 08:33) [facility] Medical Decision Making Medical Screen Exam Complete: Yes Emergency Medical Condition: Yes Medical Record Reviewed: Yes (past history confirmed, recent ER visit noted with Bicillin and Decadron) Differential Diagnosis Pharyngitis, URI, seasonal allergies Narrative Course Patient with stable vitals and no signs of peritonsillar abscess on exam. Will provide with Toradol for pain and give couple day prescription for prednisone and strict return precautions. Patient is in agreement to plan. Patient denies any new complaints, all questions answered. Patient knows that follow up is incumbent on them and to return to the emergency room immediately if new or worsening symptoms develop. vitals reviewed and are normal, agrees to further workup as an outpatient. Diagnosis Primary Impression: Pharyngitis Qualified Codes: J02.9 - Acute pharyngitis, unspecified Patient Instructions: General Instructions Departure Forms: Tests/Procedures Additional Instructions: return as needed, follow with primary this week, alternate tylenol and motrin Med/Other Pt SpecificInfo: Prescription(s) given Scripts Prednisone (Prednisone) 50 Mg Tab 50 MG PO DAILY for 4 Days, #4 TAB 0 Refills first dose 05/28 Prov: Melany Chavez MD 05/27/17 Disposition: 01 DISCHARGE HOME Condition: Stable Melany Chavez MD May 27, 2017 08:21
== END 2017-05-27 08:40 | disposition home or self-care (01) ==
LOC: PHED 07:36
DX: J02.9 Acute pharyngitis, unspecified (principal); E78.00 Pure hypercholesterolemia, unspecified; I10 Essential (primary) hypertension; J44.9 Chronic obstructive pulmonary disease, unspecified; E11.9 Type 2 diabetes mellitus without complications; F32.9 Major depressive disorder, single episode, unspecified; K21.9 Gastro-esophageal reflux disease without esophagitis; F41.9 Anxiety disorder, unspecified; E03.9 Hypothyroidism, unspecified
CPT/HCPCS: 96372; 99284; J1885; J7512

== ENCOUNTER 2017-07-07 10:27 | Emergency (ER) | payer MEDICAID ==
[~2017-07-07] VITALS: Ht 182.9 cm; Wt 95.0 kg
[~2017-07-07 10:27] MED LIST changes: -OCUF0.3D EACH EYE; +PRED50 PO
[2017-07-07 10:31] VITALS: BP 152/80; PULSE 100; RESP 20; TEMP 97.8; O2SAT 100
[2017-07-07] MEDS ORDERED: DEXAMETHASONE SOD PHOS 4 MG/ML VIAL IM ONE (11:00)
[2017-07-07] MEDS ORDERED: ORPHENADRINE INJ 60 MG/2 ML AMP IM ONE (11:00)
[2017-07-07] MEDS ORDERED: KETOROLAC TROMETHAMINE 60 MG/2 ML (IM) VIAL IM ONE (11:00)
--- NOTE | 2017-07-07 11:00 | PD ---
HPI Chief Complaint: Back/ Neck Pain or Injury Time Seen by Provider: 10:49 Travel History International Travel<30 days: No Contact w/Intl Traveler<30days: No Traveled to known affect area: No History of Present Illness HPI 47-year-old male with history of low back pain presents to the emergency room for evaluation of acute on chronic low back pain. Symptoms started while at work today. Patient states he has been dealing with low back pain for the past several days but it did not become severe until today. He has had flareups like this in the past. He had back surgery 15 years ago. Pain is localized to the right lower lumbar region and radiates down his entire right lower leg. Worse with sitting, range of motion, or movement. Patient has not taken anything his symptoms. He denies IV drug use, weight loss, night sweats, fever , saddle anesthesia, loss of bowel or bladder control, lower extremity paresthesias. No chronic medical conditions or daily medications. PFSH Past Medical History Arthritis: Yes (DJD) Asthma: No Blood Disorders: No Anxiety: Yes Depression: Yes Heart Rhythm Problems: No Cancer: No Cardiac Catheterization: No Cardiovascular Problems: Yes (htn not on meds) High Cholesterol: Yes Chest Pain: Yes (Stress test (-)) Congestive Heart Failure: No COPD: Yes Cerebrovascular Accident: No Diabetes: Yes Diminished Hearing: No Endocrine: Yes Gastrointestinal Disorders: No GERD: Yes Genitourinary: No Headaches: Yes Hepatitis: No Herniated Disk: Yes Hypertension: Yes Immune Disorder: Yes Implanted Vascular Access Dvce: No Kidney Stones: No Musculoskeletal: Yes Neurologic: Yes Psychiatric: Yes Reproductive: No Respiratory: Yes (COPD) Immunizations Current: No Myocardial Infarction: No Pneumonia: Yes Sickle Cell Disease: No Sleep Apnea: No Thyroid Disease: Yes (Hypo-) Ulcer: Yes (Gastric ) PNEUMOCCOCAL Vaccine (Year): 2 Past Surgical History Abdominal Surgery: Yes (APPEndectomy) Appendectomy: Yes Arteriovenous Shunt: No Cholecystectomy: No Coronary Artery Bypass Graft: No Insulin Pump: No Joint Replacement: No Neurologic Surgery: Yes (Laminectomy) Other Surgery: Yes Social History Alcohol Use: No Tobacco Use: No Substance Use: No Allergies-Medications (Allergen,Severity, Reaction): Coded Allergies: No Known Allergies (Verified Adverse Reaction, Unknown, 07/07/17) Reported Meds & Prescriptions Reported Meds & Active Scripts Active Review of Systems Except as stated in HPI: all other systems reviewed are Neg Physical Exam Narrative GENERAL: Well-nourished, well-developed male in no acute distress. Ambulatory. Pacing in pain. SKIN: Focused skin assessment warm/dry. No erythema or ecchymosis. HEAD: Normocephalic. EYES: No scleral icterus. No injection or drainage. NECK: Supple, trachea midline. No JVD or lymphadenopathy. CARDIOVASCULAR: Regular rate and rhythm without murmurs, gallops, or rubs. RESPIRATORY: Breath sounds equal bilaterally. No accessory muscle use. BACK: No obvious deformity. No CVA tenderness. Moderate tenderness to palpation of the right lower lumbar region. 2+ patellar and Achilles reflexes are equal bilaterally. Positive straight leg raise. Data Data Last Documented VS Vital Signs Date Time Temp Pulse Resp B/P (MAP) Pulse Ox O2 Delivery O2 Flow Rate FiO2 07/07/17 10:31 97.8 100 20 152/80 (104) 100 Orders Orders Orphenadrine Inj (Norflex Inj) (07/07/17 11:00) Ketorolac Inj (Toradol Inj) (07/07/17 11:00) Dexamethasone Inj (Decadron Inj) (07/07/17 11:00) MDM Medical Decision Making Medical Screen Exam Complete: Yes Emergency Medical Condition: Yes Medical Record Reviewed: Yes Differential Diagnosis Radiculopathy, degenerative disc disease, slipped disc, fracture, sprain, strain , spasm Narrative Course 47-year-old male presents to the emergency room for evaluation of severe, acute on chronic low back pain. He has been having some pain for the past several days but it became severe today. No trauma or injury. States this is similar to sciatica flareups in the past. No red flag symptoms. Patient is ambulatory and pacing in pain. Physical exam shows significant tenderness to palpation of the right lower lumbar paraspinous musculature. 2+ patellar and Achilles reflexes are equal bilaterally. Patient was given Decadron, Toradol, and Norflex in the emergency room with significant improvement in symptoms. He will be discharged with prescriptions for ibuprofen, prednisone, and Robaxin. Told to follow-up with a primary care physician or return to the emergency room for worsening symptoms. He understands and agrees to plan. Diagnosis Primary Impression: Sciatica Qualified Codes: M54.31 - Sciatica, right side Referrals: Primary Care Physician Additional Instructions: Rest and drink plenty of fluids. Take Robaxin as directed, as needed for pain. Take ibuprofen with food as directed, as needed for pain. Apply ice to the affected area for 20 minutes at a time, as needed for pain and swelling. Follow-up with a primary care physician. Return to the emergency room for worsening symptoms. Scripts Ibuprofen (Ibuprofen) 600 Mg Tab 600 MG PO Q8HR Y for PAIN, #21 TAB 0 Refills Prov: Clara Cardoso MD 07/07/17 Methocarbamol (Robaxin) 750 Mg Tab 750 MG PO Q8HR for Muscle Spasm, #21 TAB 0 Refills Prov: Clara Cardoso MD 07/07/17 Prednisone (Prednisone) 20 Mg Tab 40 MG PO DAILY, #8 TAB 0 Refills Take 40 mg (2 tablets) daily for 4 days Prov: Clara Cardoso MD 07/07/17 Disposition: 01 DISCHARGE HOME Condition: Stable Margarita Segal July 07, 2017 11:00
[2017-07-07] MEDS ORDERED: PRED20 PO (11:40)
[2017-07-07] MEDS ORDERED: IBUP-232 PO (11:40)
[2017-07-07] MEDS ORDERED: ROBA750T PO (11:40)
== END 2017-07-07 11:44 | disposition home or self-care (01) ==
LOC: NEPK 10:27
DX: M54.41 Lumbago with sciatica, right side (principal); M79.661 Pain in right lower leg; M19.90 Unspecified osteoarthritis, unspecified site; E78.00 Pure hypercholesterolemia, unspecified; E11.9 Type 2 diabetes mellitus without complications; J44.9 Chronic obstructive pulmonary disease, unspecified; K21.9 Gastro-esophageal reflux disease without esophagitis; I10 Essential (primary) hypertension; G89.29 Other chronic pain
CPT/HCPCS: 96372; 99283; J1100; J1885; J2360